=== PATIENT | male | born 1995 | race Two or more races ===

== ENCOUNTER 2016-04-26 | Outpatient (CLI) | payer OTHER | END 2016-04-26 17:02 | disposition critical access hospital (66) | CPT/HCPCS: A0425; A0427 ==

== ENCOUNTER 2016-04-26 17:29 | Emergency (ER) | payer OTHER ==
[2016-04-26] MEDS ORDERED: BUFFERED LIDOCAINE 10 ML SYRINGE SUBQ STA (17:35)
[2016-04-26] MEDS ORDERED: BUFFERED LIDOCAINE 10 ML SYRINGE ONE (17:39)
== END 2016-04-26 19:01 | disposition home or self-care (01) ==
DX: S01.01XA Laceration without foreign body of scalp, initial encounter (principal); W23.0XXA Caught, crushed, jammed, or pinched between moving objects, initial encounter; S06.9X9A Unspecified intracranial injury with loss of consciousness of unspecified duration, initial encounter; M54.2 Cervicalgia